=== PATIENT | male | born 1955 ===

== ENCOUNTER 2021-05-02 00:48 | Inpatient (IN) | payer MEDICARE, OTHER ==
[2021-05-02] MEDS ORDERED: Ondansetron 4 MG/2 ML SDV IVPUSH PRN (02:35)
[2021-05-02] MEDS ORDERED: Acetaminophen 325 MG Tab PO PRN (02:35)
[2021-05-02] MEDS ORDERED: Albuterol/Ipratropium 4 GM Inhalation Spray INH PRN (02:35)
[2021-05-02] MEDS ORDERED: REMDESIVIR 200 MG in Sodium Chloride 0.9% 250 ML IV ONE (02:35)
[2021-05-02] MEDS ORDERED: 50% Dextrose in Water 50 ML Syringe IVPUSH PRN (02:40)
[2021-05-02] MEDS ORDERED: Glucagon,Human Recombinant 1 MG Vial IM PRN (02:40)
[2021-05-02] MEDS: Enoxaparin 40 MG/0.4 ML Syringe SUBCUT SCH ×2 (03:01→20:18)
[2021-05-02] MEDS: Albuterol/Ipratropium 4 GM Inhalation Spray INH SCH ×6 (03:29→21:58)
[2021-05-02] MEDS: Dexamethasone 4 MG Tab PO SCH (03:46)
[2021-05-02 06:02] LABS: BLOOD UREA NITROGEN,BUN 13 mg/dL (7.0-18.0); CARBON DIOXIDE,CO2 30.1 mmol/L (21.0-32.0); CHLORIDE,CL 94 mmol/L (98-107); GLUCOSE RANDOM 157 mg/dL (74-106); SODIUM,NA 131 mmol/L (136-148)
[2021-05-02] MEDS ORDERED: Albuterol/Ipratropium 4 GM Inhalation Spray INH SCH (08:09)
--- NOTE | 2021-05-02 08:10 | PCM.HP.2 ---
H&P History of Present Illness - General Date of Service: 05/02/21 Admit Problem/Dx: Admission Diagnosis/Problem Admission Diagnosis/Problem acute hypoxic respiratory failure/COVID-19 Source of Information: Patient History Limitations: Reports: No Limitations - History of Present Illness Initial Comments - Free Text/Narative: This 65-year-old male with past medical history of hypertension, DM type II, obesity and mild alcohol use presented initially to [facility] with concerns of worsening fevers chills muscle aches and dry cough with shortness of breath. He reports that he has had these symptoms for the past 7 to 8 days and they have aggressively worsened over the last 3 days. He does report mild improvement but continues to feel significantly short breath with chest tightness. He reports he has been drinking and eating appropriately. He denies any abdominal pain other vomiting headache or neck pain. He reports mild upper respiratory symptoms such as sinus congestion and mild sore throat. He reports mild intermittent loose stools. He did report getting Covid vaccination, series of 2 vaccinations approximately 2 months ago. Patient denies any tobacco use no recreational drug use and intermittent alcohol use. In [place], no leukocytosis noted. Hemoglobin 14.6 hematocrit 43.9 platelets 262,000. Sodium 133 potassium 4.4. BUN 12 creatinine 0.9. Bilirubin 0.9 ALT 23 AST 40 alk phos 86. CRP significantly elevated at 135.5. D-dimer elevated 2.15. Covid swab positive CTA of the chest was obtained that did not show any evidence of a PE but did show extensive groundglass opacities likely secondary to COVID-19 infection. Patient was at times only requiring 0.5 L of oxygen but hospital unable to accommodate him there. Patient transferred via ambulance to [facility] for further care management for COVID-19 acute hypoxic respiratory failure. Upon arrival here patient noted to be needing 4 L of oxygen satting mid 90s. Patient otherwise stable - Related Data Allergies/Adverse Reactions: Allergies Allergy/AdvReac Type Severity Reaction Status Date / Time No Known Allergies Allergy Verified 05/02/21 01:41 Home Medications: Home Meds Furosemide [Lasix] 40 mg PO DAILY 09/24/18 [History] Losartan [Cozaar] 100 mg PO DAILY 09/24/18 [History] Potassium Chloride 10 meq PO DAILY 09/24/18 [History] Spironolactone [Aldactone] 25 mg PO DAILY 09/24/18 [History] metFORMIN [Glucophage XR] 500 mg PO DAILY 09/24/18 [History] Aspirin [Aspirin EC] 81 mg PO DAILY 05/02/21 [History] Gabapentin [Neurontin] 300 mg PO TID 05/02/21 [History] Levothyroxine Sodium [Levothyroxine] 25 mcg PO ACBREAKFAST 05/02/21 [History] Metoprolol Succinate 25 mg PO DAILY 05/02/21 [History] SUMAtriptan [Imitrex] 50 mg PO BEDTIME 05/02/21 [History] Venlafaxine [Effexor] 50 mg PO DAILY 05/02/21 [History] allopurinoL [Zyloprim] 100 mg PO DAILY 05/02/21 [History] atorvaSTATin [Lipitor] 10 mg PO BEDTIME 05/02/21 [History] Past Medical History Cardiovascular History: Reports: Heart Failure (no recent echo in file), Hypert ension Respiratory History: Reports: None. Denies: COPD, Sleep Apnea Gastrointestinal History: Reports: None Musculoskeletal History: Reports: Other (See Below) Other Musculoskeletal History: right hand fracture and had a pins in it. and has been removed Psychiatric History: Reports: Depression Endocrine/Metabolic History: Reports: Diabetes, Type II, Obesity/BMI 30+ Dermatologic History: Reports: Psoriasis - Infectious Disease History Infectious Disease History: Reports: None - Past Surgical History Cardiovascular Surgical History: Reports: None Social & Family History - Family History Family Medical History: No Pertinent Family History - Tobacco Use Tobacco Use Status *Q: Never Tobacco User Second Hand Smoke Exposure: Yes - Caffeine Use Caffeine Use: Reports: None - Alcohol Use Alcohol Use History: Yes Alcohol Use Frequency: Daily Alcohol Use Comment: reports nothing currently, but previous drank significant amount. - Recreational Drug Use Recreational Drug Use: Yes Drug Use in Last 12 Months: No Recreational Drug Type: Reports: Marijuana/Hashish Recreational Drug Use Frequency: Rarely - Living Situation & Occupation Living situation: Reports: H&P Review of Systems - Review of Systems: Review Of Systems: See Below General: Reports: Fever, Chills, Malaise, Weakness, Fatigue HEENT: Reports: Post Nasal Drip, Sinus Congestion. Denies: Headaches Pulmonary: Reports: Shortness of Breath, Pleuritic Chest Pain, Cough, Sputum Cardiovascular: Reports: Dyspnea on Exertion. Denies: Chest Pain Gastrointestinal: Reports: No Symptoms, Decreased Appetite. Denies: Abdominal Pain, Black Stool, Nausea, Vomiting Genitourinary: Reports: No Symptoms. Denies: Dysuria, Frequency Musculoskeletal: Reports: No Symptoms, Neck Pain Skin: Reports: Rash (psorasis) Psychiatric: Reports: No Symptoms Neurological: Reports: No Symptoms Hematologic/Lymphatic: Reports: No Symptoms Immunologic: Reports: No Symptoms Exam - Exam Exam: See Below - Vital Signs Vital Signs: Last Vital Signs Temp 96.5 F L 05/02/21 07:49 Pulse 67 05/02/21 07:49 Resp 20 05/02/21 07:49 BP 126/68 05/02/21 07:49 Pulse Ox 93 L 05/02/21 07:49 Weight: 140.296 kg - Exam General: Alert, Oriented, Cooperative HEENT: Conjunctiva Clear, Mucosa Moist & [place], Posterior Pharynx Clear Lungs: Decreased Breath Sounds, Crackles (fine bibasilar) Cardiovascular: Regular Rate, Regular Rhythm GI/Abdominal Exam: Normal Bowel Sounds, Soft, Non-Tender, Other (obese abdomen, large pannus) Back Exam: Normal Inspection, Full Range of Motion Extremities: Normal Inspection, Normal Range of Motion, Non-Tender, No Pedal Edema Neuro Extensive - Mental Status: Alert, Oriented x3 Neuro Extensive - Motor, Sensory, Reflexes: CN II-XII Intact, Normal Gait Psychiatric: Alert, Normal Affect, Normal Mood - Patient Data Lab Results Last 24 hrs: Laboratory Results - last 24 hr 05/02/21 05/02/21 05/02/21 Range/Units 05:15 05:15 07:35 WBC 4.64 (4.0-11.0) K/uL RBC 4.57 (4.50-5.90) M/uL Hgb 14.6 (13.0-17.0) g/dL Hct 42.9 (38.0-50.0) % MCV 93.9 (80.0-98.0) fL MCH 31.9 (27.0-32.0) pg MCHC 34.0 (31.0-37.0) g/dL RDW Std Deviation 45.8 (28.0-62.0) fl RDW Coeff of Lili 13 (11.0-15.0) % Plt Count 260 (150-400) K/uL MPV 10.50 (7.40-12.00) fL Neut % (Auto) 80.6 H (48.0-80.0) % Lymph % (Auto) 14.7 L (16.0-40.0) % [place] % (Auto) 4.5 (0.0-15.0) % Eos % (Auto) 0.0 (0.0-7.0) % Baso % (Auto) 0.2 (0.0-1.5) % Neut # (Auto) 3.7 (1.4-5.7) K/uL Lymph # (Auto) 0.7 (0.6-2.4) K/uL [place] # (Auto) 0.2 (0.0-0.8) K/uL Eos # (Auto) 0.0 (0.0-0.7) K/uL Baso # (Auto) 0.0 (0.0-0.1) K/uL Nucleated RBC % 0.0 /100WBC Nucleated RBCs # 0 K/uL Sodium 131 L (136-148) mmol/L Potassium 5.0 (3.5-5.1) mmol/L Chloride 94 L (98-107) mmol/L Carbon Dioxide 30.1 (21.0-32.0) mmol/L BUN 13 (7.0-18.0) mg/dL Creatinine 0.9 (0.8-1.3) mg/dL Est Cr Clr Drug Dosing 75.48 mL/min Estimated GFR (MDRD) > 60.0 ml/min Glucose 157 H (74-106) mg/dL POC Glucose 143 H (70-99) mg/dL Calcium 8.7 (8.5-10.1) mg/dL Phosphorus 3.4 (2.6-4.7) mg/dL Magnesium 2.5 H (1.8-2.4) mg/dL Total Bilirubin 0.8 (0.2-1.0) mg/dL Direct Bilirubin 0.30 (0.0-0.5) mg/dL AST 41 H (15-37) IU/L ALT 29 (14-63) IU/L Alkaline Phosphatase 90 (46-116) U/L Total Protein 8.0 (6.4-8.2) g/dL Albumin 2.8 L (3.4-5.0) g/dL Globulin 5.2 H (2.6-4.0) g/dL Albumin/Globulin Ratio 0.5 L (0.9-1.6) Result Diagrams: 05/02/21 05:15 05/02/21 05:15 Sepsis Event Note - Evaluation Sepsis Screening Result: No Definite Risk - Focused Exam Vital Signs: Vital Signs Temp Pulse Resp BP Pulse Ox 05/02/21 07:49 96.5 F L 67 20 126/68 93 L 05/02/21 05:05 97.1 F 71 20 126/58 L 92 L 05/02/21 01:50 95.3 F L 79 19 115/58 L 95 - Problem List (1) Acute respiratory failure with hypoxia SNOMED Code(s): 44181754, 612413225 ICD Code: J96.01 - ACUTE RESPIRATORY FAILURE WITH HYPOXIA Status: Acute Current Visit: Yes (2) COVID-19 SNOMED Code(s): 412253385 ICD Code: U07.1 - COVID-19 Status: Acute Current Visit: Yes (3) Viral pneumonia SNOMED Code(s): 20177894 ICD Code: J12.9 - VIRAL PNEUMONIA, UNSPECIFIED Status: Acute Current Visit: Yes (4) Morbid obesity SNOMED Code(s): 150561033 ICD Code: E66.01 - MORBID (SEVERE) OBESITY DUE TO EXCESS CALORIES Status: Chronic Current Visit: Yes (5) Hypertension SNOMED Code(s): 48884966 ICD Code: I10 - ESSENTIAL (PRIMARY) HYPERTENSION Status: Chronic Current Visit: Yes (6) DM type 2 (diabetes mellitus, type 2) SNOMED Code(s): 45972532 ICD Code: E11.9 - TYPE 2 DIABETES MELLITUS WITHOUT COMPLICATIONS Status: Chronic Current Visit: Yes (7) CHF (congestive heart failure) SNOMED Code(s): 75834091 ICD Code: I50.9 - HEART FAILURE, UNSPECIFIED Status: Chronic Current Visit: Yes Qualifiers: Heart failure type: unspecified Heart failure chronicity: chronic Qu alified Code(s): I50.9 - Heart failure, unspecified Problem List Initiated/Reviewed/Updated: Yes Orders Last 24hrs: Active Orders 24 hr Category Date Time Status Admission Status [Patient Status] [ADT] Routine ADT 05/02/21 07:09 Active Ambulate [RC] ASDIRECTED Care 05/02/21 02:35 Active Blood Glucose Check, Bedside [RC] TIDAC Care 05/02/21 02:35 Active Communication Order [RC] ROUTINE Care 05/02/21 08:07 Ordered Intake and Output [RC] QSHIFT Care 05/02/21 08:07 Ordered Oxygen Therapy [RC] PRN Care 05/02/21 08:08 Ordered RT Incentive Spirometry [RC] Q1HWA Care 05/02/21 08:07 Ordered RT Post Treatment Assessment [RC] Click to Edit Care 05/02/21 02:37 Active RT Pre-Treatment Assessment [RC] Click to Edit Care 05/02/21 02:37 Active Telemetry Monitoring [Cardiac Monitoring] [RC] . Care 05/02/21 07:00 Active DIRECTED Vital Signs [RC] Q4H Care 05/02/21 02:35 Active Consult to Case Management/Cistern Room Operator [CONS] Cons 05/02/21 07:00 Active Routine [employer] Diet [DIET] Diet 05/02/21 Breakfast Active Acetaminophen [TylenoL] Med 05/02/21 02:35 Active 650 mg PO Q6H PRN Albuterol/Ipratropium [Combivent Respimat] Med 05/02/21 08:09 Ordered See Dose Instructions INH Q4H Dextrose 50% in Water Med 05/02/21 02:40 Active 50 ml IVPUSH ASDIRECTED PRN Enoxaparin [Lovenox] Med 05/02/21 02:45 Active 40 mg SUBCUT BID Glucagon,Human Recombinant [GlucaGen] Med 05/02/21 02:40 Active 1 mg IM ASDIRECTED PRN Insulin Aspart [NovoLOG] Med 05/02/21 07:30 Active See Protocol SUBCUT TIDAC Ondansetron [Zofran] Med 05/02/21 02:35 Active 4 mg IVPUSH Q4H PRN Remdesivir 100 mg Med 05/03/21 12:30 Ordered Sodium Chloride 0.9% [Normal Saline] 100 ml IV Q24H dexAMETHasone Med 05/02/21 02:45 Active 6 mg PO DAILY Resuscitation Status Routine Resus Stat 05/02/21 08:09 Ordered Medication Orders Acetaminophen (Acetaminophen 325 Mg Tab) 650 mg PO Q6H PRN PRN Reason: Pain/Fever Dexamethasone (Dexamethasone 4 Mg Tab) 6 mg PO DAILY [facility] Last Admin: 05/02/21 03:46 Dose: Not Given Documented by: CAMILLA Dextrose/Water (50% Dextrose In Water 50 Ml Syringe) 50 ml IVPUSH ASDIRECTED PRN PRN Reason: Hypoglycemia Enoxaparin Sodium (Enoxaparin 40 Mg/0.4 Ml Syringe) 40 mg SUBCUT BID [facility] Last Admin: 05/02/21 03:01 Dose: 40 mg Documented by: LIANA Glucagon (Glucagon,Human Recombinant 1 Mg Vial) 1 mg IM ASDIRECTED PRN PRN Reason: Hypoglycemia Remdesivir 100 mg/ Sodium (Chloride) 100 mls @ 100 mls/hr IV Q24H [facility] Stop: 05/06/21 13:29 Insulin Aspart (Insulin Aspart 100 Units/Ml 3 Ml Pen) 0 unit SUBCUT TIDAC [facility]; Protocol Ondansetron HCl (Ondansetron 4 Mg/2 Ml Sdv) 4 mg IVPUSH Q4H PRN PRN Reason: Nausea Assessment/Plan Comment:: This 65-year-old male admitted with acute hypoxic respiratory failure, COVID-19, viral pneumonia 1. Acute hypoxic respiratory failure/Covid 19/viral pneumonia -Upon arrival given remdesivir 200 mg IV, continue remdesivir 100 mg IV daily starting tomorrow -Continue dexamethasone 6 mg p.o. daily -Oxygen therapy to keep sats greater than 92%. -Currently on 4 L nasal cannula wean as possible -Lovenox -Monitor LFTs while on remdesivir therapy -Encourage I-S use when off BiPAP -Combivent scheduled encourage coughing and deep breathing -Encourage patient to prone and/or left side-lying as much as possible -Cough medicine as needed 2. Hypertension: -Appears patient is being treated for CHF will attempt chart review and find recent echo. No ECHO noted in [facility], but one clinic not mentions hx CHF and hx alcohol abuse. -Continue spironolactone, Lasix, metoprolol and losartan -Continue ASA and statin -Monitor on telemetry 3. DM type II: -Hold Metformin -NovoLog sliding scale with meals -ADA diet VTE prophylaxis: Lovenox twice daily due to morbid obesity GI prophylaxis: Protonix CODE STATUS: Full code Dispo: 2 to 3 days pending improvement.
--- NOTE | 2021-05-02 08:11 | PCM.PN ---
- General Info Date of Service: 05/02/21 Admission Dx/Problem (Free Text): Admission Diagnosis/Problem Admission Diagnosis/Problem Pneumonia - Patient Data Vitals - Most Recent: Last Vital Signs Temp 96.5 F L 05/02/21 07:49 Pulse 67 05/02/21 07:49 Resp 20 05/02/21 07:49 BP 126/68 05/02/21 07:49 Pulse Ox 93 L 05/02/21 07:49 Weight - Most Recent: 140.296 kg Lab Results Last 24 Hours: Laboratory Results - last 24 hr 05/02/21 05/02/21 05/02/21 Range/Units 05:15 05:15 07:35 WBC 4.64 (4.0-11.0) K/uL RBC 4.57 (4.50-5.90) M/uL Hgb 14.6 (13.0-17.0) g/dL Hct 42.9 (38.0-50.0) % MCV 93.9 (80.0-98.0) fL MCH 31.9 (27.0-32.0) pg MCHC 34.0 (31.0-37.0) g/dL RDW Std Deviation 45.8 (28.0-62.0) fl RDW Coeff of Lili 13 (11.0-15.0) % Plt Count 260 (150-400) K/uL MPV 10.50 (7.40-12.00) fL Neut % (Auto) 80.6 H (48.0-80.0) % Lymph % (Auto) 14.7 L (16.0-40.0) % [place] % (Auto) 4.5 (0.0-15.0) % Eos % (Auto) 0.0 (0.0-7.0) % Baso % (Auto) 0.2 (0.0-1.5) % Neut # (Auto) 3.7 (1.4-5.7) K/uL Lymph # (Auto) 0.7 (0.6-2.4) K/uL [place] # (Auto) 0.2 (0.0-0.8) K/uL Eos # (Auto) 0.0 (0.0-0.7) K/uL Baso # (Auto) 0.0 (0.0-0.1) K/uL Nucleated RBC % 0.0 /100WBC Nucleated RBCs # 0 K/uL Sodium 131 L (136-148) mmol/L Potassium 5.0 (3.5-5.1) mmol/L Chloride 94 L (98-107) mmol/L Carbon Dioxide 30.1 (21.0-32.0) mmol/L BUN 13 (7.0-18.0) mg/dL Creatinine 0.9 (0.8-1.3) mg/dL Est Cr Clr Drug Dosing 75.48 mL/min Estimated GFR (MDRD) > 60.0 ml/min Glucose 157 H (74-106) mg/dL POC Glucose 143 H (70-99) mg/dL Calcium 8.7 (8.5-10.1) mg/dL Phosphorus 3.4 (2.6-4.7) mg/dL Magnesium 2.5 H (1.8-2.4) mg/dL Total Bilirubin 0.8 (0.2-1.0) mg/dL Direct Bilirubin 0.30 (0.0-0.5) mg/dL AST 41 H (15-37) IU/L ALT 29 (14-63) IU/L Alkaline Phosphatase 90 (46-116) U/L Total Protein 8.0 (6.4-8.2) g/dL Albumin 2.8 L (3.4-5.0) g/dL Globulin 5.2 H (2.6-4.0) g/dL Albumin/Globulin Ratio 0.5 L (0.9-1.6) Med Orders - Current: Current Medications Acetaminophen (Acetaminophen 325 Mg Tab) 650 mg PO Q6H PRN PRN Reason: Pain/Fever Albuterol/Ipratropium (Albuterol/Ipratropium 4 Gm Inhalation [place]) 0 gm INH Q4H [facility] Dexamethasone (Dexamethasone 4 Mg Tab) 6 mg PO DAILY [facility] Last Admin: 05/02/21 03:46 Dose: Not Given Documented by: Dextrose/Water (50% Dextrose In Water 50 Ml Syringe) 50 ml IVPUSH ASDIRECTED PRN PRN Reason: Hypoglycemia Enoxaparin Sodium (Enoxaparin 40 Mg/0.4 Ml Syringe) 40 mg SUBCUT BID [facility] Last Admin: 05/02/21 03:01 Dose: 40 mg Documented by: Glucagon (Glucagon,Human Recombinant 1 Mg Vial) 1 mg IM ASDIRECTED PRN PRN Reason: Hypoglycemia Remdesivir 100 mg/ Sodium (Chloride) 100 mls @ 100 mls/hr IV Q24H [facility] Stop: 05/06/21 13:29 Insulin Aspart (Insulin Aspart 100 Units/Ml 3 Ml Pen) 0 unit SUBCUT TIDAC [facility]; Protocol Ondansetron HCl (Ondansetron 4 Mg/2 Ml Sdv) 4 mg IVPUSH Q4H PRN PRN Reason: Nausea Discontinued Medications Albuterol/Ipratropium (Albuterol/Ipratropium 4 Gm Inhalation [place]) 0 gm INH Q4H PRN PRN Reason: Dyspnea Albuterol/Ipratropium (Albuterol/Ipratropium 4 Gm Inhalation [place]) 0 gm INH Q4H [facility] Last Admin: 05/02/21 06:44 Dose: 2 puff Documented by: Remdesivir 200 mg/ Sodium (Chloride) 250 mls @ 250 mls/hr IV ONETIME ONE Stop: 05/02/21 02:36 Last Admin: 05/02/21 03:01 Dose: 250 mls/hr Documented by: - Patient Data Lab Results Last 24 hrs: Laboratory Results - last 24 hr 05/02/21 05/02/21 05/02/21 Range/Units 05:15 05:15 07:35 WBC 4.64 (4.0-11.0) K/uL RBC 4.57 (4.50-5.90) M/uL Hgb 14.6 (13.0-17.0) g/dL Hct 42.9 (38.0-50.0) % MCV 93.9 (80.0-98.0) fL MCH 31.9 (27.0-32.0) pg MCHC 34.0 (31.0-37.0) g/dL RDW Std Deviation 45.8 (28.0-62.0) fl RDW Coeff of Lili 13 (11.0-15.0) % Plt Count 260 (150-400) K/uL MPV 10.50 (7.40-12.00) fL Neut % (Auto) 80.6 H (48.0-80.0) % Lymph % (Auto) 14.7 L (16.0-40.0) % Ellis % (Auto) 4.5 (0.0-15.0) % Eos % (Auto) 0.0 (0.0-7.0) % Baso % (Auto) 0.2 (0.0-1.5) % Neut # (Auto) 3.7 (1.4-5.7) K/uL Lymph # (Auto) 0.7 (0.6-2.4) K/uL [place] # (Auto) 0.2 (0.0-0.8) K/uL Eos # (Auto) 0.0 (0.0-0.7) K/uL Baso # (Auto) 0.0 (0.0-0.1) K/uL Nucleated RBC % 0.0 /100WBC Nucleated RBCs # 0 K/uL Sodium 131 L (136-148) mmol/L Potassium 5.0 (3.5-5.1) mmol/L Chloride 94 L (98-107) mmol/L Carbon Dioxide 30.1 (21.0-32.0) mmol/L BUN 13 (7.0-18.0) mg/dL Creatinine 0.9 (0.8-1.3) mg/dL Est Cr Clr Drug Dosing 75.48 mL/min Estimated GFR (MDRD) > 60.0 ml/min Glucose 157 H (74-106) mg/dL POC Glucose 143 H (70-99) mg/dL Calcium 8.7 (8.5-10.1) mg/dL Phosphorus 3.4 (2.6-4.7) mg/dL Magnesium 2.5 H (1.8-2.4) mg/dL Total Bilirubin 0.8 (0.2-1.0) mg/dL Direct Bilirubin 0.30 (0.0-0.5) mg/dL AST 41 H (15-37) IU/L ALT 29 (14-63) IU/L Alkaline Phosphatase 90 (46-116) U/L Total Protein 8.0 (6.4-8.2) g/dL Albumin 2.8 L (3.4-5.0) g/dL Globulin 5.2 H (2.6-4.0) g/dL Albumin/Globulin Ratio 0.5 L (0.9-1.6) Result Diagrams: 05/02/21 05:15 05/02/21 05:15 Sepsis Event Note - Evaluation Sepsis Screening Result: No Definite Risk - Focused Exam Vital Signs: Vital Signs Temp Pulse Resp BP Pulse Ox 05/02/21 07:49 96.5 F L 67 20 126/68 93 L 05/02/21 05:05 97.1 F 71 20 126/58 L 92 L 05/02/21 01:50 95.3 F L 79 19 115/58 L 95 - My Orders Last 24 Hours: My Active Orders 05/02/21 08:07 Communication Order [RC] ROUTINE Intake and Output [RC] QSHIFT RT Incentive Spirometry [RC] Q1HWA 05/02/21 08:08 Oxygen Therapy [RC] PRN 05/02/21 08:09 Resuscitation Status Routine 05/02/21 08:09 Albuterol/Ipratropium [Combivent Respimat] See Dose Instructions INH Q4H 05/03/21 12:30 Remdesivir 100 mg Sodium Chloride 0.9% [Normal Saline] 100 ml IV Q24H
[2021-05-02] MEDS: Insulin Aspart 100 Units/ML 3 ML Pen SUBCUT SCH ×3 (08:44→18:24)
[2021-05-02] MEDS: Gabapentin 300 MG Cap PO SCH ×2 (14:47→22:03)
[2021-05-02] MEDS ORDERED: SUMAtriptan 50 MG Tab PO PRN (15:00)
[2021-05-02] MEDS: atorvaSTATin 10 MG Tab PO SCH (20:18)
[2021-05-03] MEDS: Albuterol/Ipratropium 4 GM Inhalation Spray INH SCH ×6 (02:18→20:59)
[2021-05-03] MEDS: Levothyroxine 25 MCG Tab PO SCH (06:36)
[2021-05-03] MEDS: Gabapentin 300 MG Cap PO SCH ×3 (06:36→23:14)
[2021-05-03] MEDS: Insulin Aspart 100 Units/ML 3 ML Pen SUBCUT SCH ×3 (06:38→18:10)
[2021-05-03 07:48] LABS: BLOOD UREA NITROGEN,BUN 20 mg/dL (7.0-18.0); CARBON DIOXIDE,CO2 29.3 mmol/L (21.0-32.0); CHLORIDE,CL 97 mmol/L (98-107); GLUCOSE RANDOM 132 mg/dL (74-106); SODIUM,NA 134 mmol/L (136-148)
[2021-05-03] MEDS: Enoxaparin 40 MG/0.4 ML Syringe SUBCUT SCH ×2 (09:01→20:58)
[2021-05-03] MEDS: Aspirin 81 MG Tab.EC PO SCH (09:01)
[2021-05-03] MEDS: Spironolactone 25 MG Tab PO SCH (09:04)
[2021-05-03] MEDS: Pantoprazole 40 MG Tab.CR PO SCH (09:06)
[2021-05-03] MEDS: Dexamethasone 4 MG Tab PO SCH (09:06)
[2021-05-03] MEDS: Metoprolol Succinate 25 MG Tab.ER PO SCH (09:07)
[2021-05-03] MEDS: Allopurinol 100 MG Tab PO SCH (09:07)
[2021-05-03] MEDS: Furosemide 40 MG Tab PO SCH (09:07)
[2021-05-03] MEDS: Losartan 50 MG Tab PO SCH (09:08)
[2021-05-03] MEDS: REMDESIVIR 100 MG in Sodium Chloride 0.9% 100 ML IV SCH (13:30)
--- NOTE | 2021-05-03 14:47 | PCM.PN ---
- General Info Date of Service: 05/03/21 Admission Dx/Problem (Free Text): Admission Diagnosis/Problem Admission Diagnosis/Problem acute hypoxic respiratory failure/COVID-19 Subjective Update: Patient seen at bedside, sitting on the edge of the bed, resting comfortably no acute symptoms states that he is able to take deeper breaths now. Feels better than yesterday Functional Status: Reports: Tolerating Diet, Ambulating, Urinating - Review of Systems General: Denies: Fever, Weakness, Fatigue, Malaise Pulmonary: Reports: Shortness of Breath, Cough, Sputum. Denies: Pleuritic Chest Pain Cardiovascular: Reports: Dyspnea on Exertion. Denies: Chest Pain, Palpitations Gastrointestinal: Denies: Abdominal Pain, Constipation, Decreased Appetite, Diarrhea Genitourinary: Denies: Dysuria, Frequency, Burning, Pain Musculoskeletal: Denies: Neck Pain, Shoulder Pain, Arm Pain, Hand Pain Skin: Denies: Cyanosis, Jaundice, Mottled, Pallor - Patient Data Vitals - Most Recent: Last Vital Signs Temp 35.8 C L 05/03/21 12:00 Pulse 69 05/03/21 12:00 Resp 20 05/03/21 12:00 BP 117/56 L 05/03/21 12:00 Pulse Ox 95 05/03/21 12:00 Weight - Most Recent: 140.296 kg I&O - Last 24 Hours: Intake & Output 05/02/21 05/03/21 05/03/21 22:59 06:59 14:59 Intake Total 750 600 Balance 750 600 Lab Results Last 24 Hours: Laboratory Results - last 24 hr 05/02/21 05/03/21 05/03/21 Range/Units 17:52 06:07 06:56 WBC 7.20 (4.0-11.0) K/uL RBC 4.51 (4.50-5.90) M/uL Hgb 14.3 (13.0-17.0) g/dL Hct 42.3 (38.0-50.0) % MCV 93.8 (80.0-98.0) fL MCH 31.7 (27.0-32.0) pg MCHC 33.8 (31.0-37.0) g/dL RDW Std Deviation 45.7 (28.0-62.0) fl RDW Coeff of Lili 13 (11.0-15.0) % Plt Count 311 (150-400) K/uL MPV 9.90 (7.40-12.00) fL Neut % (Auto) 69.1 (48.0-80.0) % Lymph % (Auto) 21.0 (16.0-40.0) % [place] % (Auto) 9.7 (0.0-15.0) % Eos % (Auto) 0.1 (0.0-7.0) % Baso % (Auto) 0.1 (0.0-1.5) % Neut # (Auto) 5.0 (1.4-5.7) K/uL Lymph # (Auto) 1.5 (0.6-2.4) K/uL [place] # (Auto) 0.7 (0.0-0.8) K/uL Eos # (Auto) 0.0 (0.0-0.7) K/uL Baso # (Auto) 0.0 (0.0-0.1) K/uL Nucleated RBC % 0.0 /100WBC Nucleated RBCs # 0 K/uL Sodium (136-148) mmol/L Potassium (3.5-5.1) mmol/L Chloride (98-107) mmol/L Carbon Dioxide (21.0-32.0) mmol/L BUN (7.0-18.0) mg/dL Creatinine (0.8-1.3) mg/dL Est Cr Clr Drug Dosing mL/min Estimated GFR (MDRD) ml/min Glucose (74-106) mg/dL POC Glucose 147 H 98 (70-99) mg/dL Calcium (8.5-10.1) mg/dL Magnesium (1.8-2.4) mg/dL Total Bilirubin (0.2-1.0) mg/dL AST (15-37) IU/L ALT (14-63) IU/L Alkaline Phosphatase (46-116) U/L Total Protein (6.4-8.2) g/dL Albumin (3.4-5.0) g/dL Globulin (2.6-4.0) g/dL Albumin/Globulin Ratio (0.9-1.6) 05/03/21 05/03/21 Range/Units 06:56 11:55 WBC (4.0-11.0) K/uL RBC (4.50-5.90) M/uL Hgb (13.0-17.0) g/dL Hct (38.0-50.0) % MCV (80.0-98.0) fL MCH (27.0-32.0) pg MCHC (31.0-37.0) g/dL RDW Std Deviation (28.0-62.0) fl RDW Coeff of Lili (11.0-15.0) % Plt Count (150-400) K/uL MPV (7.40-12.00) fL Neut % (Auto) (48.0-80.0) % Lymph % (Auto) (16.0-40.0) % [place] % (Auto) (0.0-15.0) % Eos % (Auto) (0.0-7.0) % Baso % (Auto) (0.0-1.5) % Neut # (Auto) (1.4-5.7) K/uL Lymph # (Auto) (0.6-2.4) K/uL [place] # (Auto) (0.0-0.8) K/uL Eos # (Auto) (0.0-0.7) K/uL Baso # (Auto) (0.0-0.1) K/uL Nucleated RBC % /100WBC Nucleated RBCs # K/uL Sodium 134 L (136-148) mmol/L Potassium 4.0 (3.5-5.1) mmol/L Chloride 97 L (98-107) mmol/L Carbon Dioxide 29.3 (21.0-32.0) mmol/L BUN 20 H (7.0-18.0) mg/dL Creatinine 0.9 (0.8-1.3) mg/dL Est Cr Clr Drug Dosing 75.48 mL/min Estimated GFR (MDRD) > 60.0 ml/min Glucose 132 H (74-106) mg/dL POC Glucose 154 H (70-99) mg/dL Calcium 8.4 L (8.5-10.1) mg/dL Magnesium 2.6 H (1.8-2.4) mg/dL Total Bilirubin 0.7 (0.2-1.0) mg/dL AST 34 (15-37) IU/L ALT 27 (14-63) IU/L Alkaline Phosphatase 84 (46-116) U/L Total Protein 7.7 (6.4-8.2) g/dL Albumin 2.8 L (3.4-5.0) g/dL Globulin 4.9 H (2.6-4.0) g/dL Albumin/Globulin Ratio 0.6 L (0.9-1.6) Med Orders - Current: Current Medications Acetaminophen (Acetaminophen 325 Mg Tab) 650 mg PO Q6H PRN PRN Reason: Pain/Fever Albuterol/Ipratropium (Albuterol/Ipratropium 4 Gm Inhalation [place]) 0 gm INH Q4H [facility] Last Admin: 05/03/21 14:25 Dose: 2 puff Documented by: Allopurinol (Allopurinol 100 Mg Tab) 100 mg PO DAILY [facility] Last Admin: 05/03/21 09:07 Dose: 100 mg Documented by: Aspirin (Aspirin 81 Mg Tab.Ec) 81 mg PO DAILY [facility] Last Admin: 05/03/21 09:01 Dose: 81 mg Documented by: Atorvastatin Calcium (Atorvastatin 10 Mg Tab) 10 mg PO BEDTIME [facility] Last Admin: 05/02/21 20:18 Dose: 10 mg Documented by: Dexamethasone (Dexamethasone 4 Mg Tab) 6 mg PO DAILY [facility] Last Admin: 05/03/21 09:06 Dose: 6 mg Documented by: Dextrose/Water (50% Dextrose In Water 50 Ml Syringe) 50 ml IVPUSH ASDIRECTED PRN PRN Reason: Hypoglycemia Enoxaparin Sodium (Enoxaparin 40 Mg/0.4 Ml Syringe) 40 mg SUBCUT BID [facility] Last Admin: 05/03/21 09:01 Dose: 40 mg Documented by: Furosemide (Furosemide 40 Mg Tab) 40 mg PO DAILY [facility] Last Admin: 05/03/21 09:07 Dose: 40 mg Documented by: Gabapentin (Gabapentin 300 Mg Cap) 300 mg PO TID [facility] Last Admin: 05/03/21 13:30 Dose: 300 mg Documented by: Glucagon (Glucagon,Human Recombinant 1 Mg Vial) 1 mg IM ASDIRECTED PRN PRN Reason: Hypoglycemia Remdesivir 100 mg/ Sodium (Chloride) 100 mls @ 100 mls/hr IV Q24H [facility] Stop: 05/06/21 13:29 Last Admin: 05/03/21 13:30 Dose: 100 mls/hr Documented by: Insulin Aspart (Insulin Aspart 100 Units/Ml 3 Ml Pen) 0 unit SUBCUT TIDAC [facility]; Protocol Last Admin: 05/03/21 11:59 Dose: 1 unit Documented by: Levothyroxine Sodium (Levothyroxine 25 Mcg Tab) 25 mcg PO ACBREAKFAST [facility] Last Admin: 05/03/21 06:36 Dose: 25 mcg Documented by: Losartan Potassium (Losartan 50 Mg Tab) 100 mg PO DAILY [facility] Last Admin: 05/03/21 09:08 Dose: 100 mg Documented by: Metoprolol Succinate (Metoprolol Succinate 25 Mg Tab.Er) 25 mg PO DAILY [facility] Last Admin: 05/03/21 09:07 Dose: 25 mg Documented by: Ondansetron HCl (Ondansetron 4 Mg/2 Ml Sdv) 4 mg IVPUSH Q4H PRN PRN Reason: Nausea Pantoprazole Sodium (Pantoprazole 40 Mg Tab.Cr) 40 mg PO DAILY [facility] Last Admin: 05/03/21 09:06 Dose: 40 mg Documented by: Venlafaxine 50 Mg (Tablet) 1 each PO DAILY [facility] Last Admin: 05/03/21 09:08 Dose: Not Given Documented by: Spironolactone (Spironolactone 25 Mg Tab) 25 mg PO DAILY [facility] Last Admin: 05/03/21 09:04 Dose: 25 mg Documented by: Sumatriptan Succinate (Sumatriptan 50 Mg Tab) 50 mg PO .START OF MIGRAINE PRN PRN Reason: MIGRAINES Discontinued Medications Albuterol/Ipratropium (Albuterol/Ipratropium 4 Gm Inhalation [place]) 0 gm INH Q4H PRN PRN Reason: Dyspnea Albuterol/Ipratropium (Albuterol/Ipratropium 4 Gm Inhalation [place]) 0 gm INH Q 4H [facility] Last Admin: 05/02/21 06:44 Dose: 2 puff Documented by: Albuterol/Ipratropium (Albuterol/Ipratropium 4 Gm Inhalation [place]) 0 gm INH Q4H [facility] Last Admin: 05/02/21 08:47 Dose: 2 puff Documented by: Remdesivir 200 mg/ Sodium (Chloride) 250 mls @ 250 mls/hr IV ONETIME ONE Stop: 05/02/21 02:36 Last Admin: 05/02/21 03:01 Dose: 250 mls/hr Documented by: - Exam Quality Assessment: Supplemental Oxygen General: Alert Lungs: Normal Respiratory Effort, Decreased Breath Sounds, Rales, Wheezing Cardiovascular: Regular Rate, Regular Rhythm GI/Abdominal Exam: Normal Bowel Sounds, Soft, Non-Tender Extremities: Normal Inspection, Normal Range of Motion, Non-Tender - Patient Data Lab Results Last 24 hrs: Laboratory Results - last 24 hr 05/02/21 05/03/21 05/03/21 Range/Units 17:52 06:07 06:56 WBC 7.20 (4.0-11.0) K/uL RBC 4.51 (4.50-5.90) M/uL Hgb 14.3 (13.0-17.0) g/dL Hct 42.3 (38.0-50.0) % MCV 93.8 (80.0-98.0) fL MCH 31.7 (27.0-32.0) pg MCHC 33.8 (31.0-37.0) g/dL RDW Std Deviation 45.7 (28.0-62.0) fl RDW Coeff of Lili 13 (11.0-15.0) % Plt Count 311 (150-400) K/uL MPV 9.90 (7.40-12.00) fL Neut % (Auto) 69.1 (48.0-80.0) % Lymph % (Auto) 21.0 (16.0-40.0) % [place] % (Auto) 9.7 (0.0-15.0) % Eos % (Auto) 0.1 (0.0-7.0) % Baso % (Auto) 0.1 (0.0-1.5) % Neut # (Auto) 5.0 (1.4-5.7) K/uL Lymph # (Auto) 1.5 (0.6-2.4) K/uL [place] # (Auto) 0.7 (0.0-0.8) K/uL Eos # (Auto) 0.0 (0.0-0.7) K/uL Baso # (Auto) 0.0 (0.0-0.1) K/uL Nucleated RBC % 0.0 /100WBC Nucleated RBCs # 0 K/uL Sodium (136-148) mmol/L Potassium (3.5-5.1) mmol/L Chloride (98-107) mmol/L Carbon Dioxide (21.0-32.0) mmol/L BUN (7.0-18.0) mg/dL Creatinine (0.8-1.3) mg/dL Est Cr Clr Drug Dosing mL/min Estimated GFR (MDRD) ml/min Glucose (74-106) mg/dL POC Glucose 147 H 98 (70-99) mg/dL Calcium (8.5-10.1) mg/dL Magnesium (1.8-2.4) mg/dL Total Bilirubin (0.2-1.0) mg/dL AST (15-37) IU/L ALT (14-63) IU/L Alkaline Phosphatase (46-116) U/L Total Protein (6.4-8.2) g/dL Albumin (3.4-5.0) g/dL Globulin (2.6-4.0) g/dL Albumin/Globulin Ratio (0.9-1.6) 05/03/21 05/03/21 Range/Units 06:56 11:55 WBC (4.0-11.0) K/uL RBC (4.50-5.90) M/uL Hgb (13.0-17.0) g/dL Hct (38.0-50.0) % MCV (80.0-98.0) fL MCH (27.0-32.0) pg MCHC (31.0-37.0) g/dL RDW Std Deviation (28.0-62.0) fl RDW Coeff of Lili (11.0-15.0) % Plt Count (150-400) K/uL MPV (7.40-12.00) fL Neut % (Auto) (48.0-80.0) % Lymph % (Auto) (16.0-40.0) % [place] % (Auto) (0.0-15.0) % Eos % (Auto) (0.0-7.0) % Baso % (Auto) (0.0-1.5) % Neut # (Auto) (1.4-5.7) K/uL Lymph # (Auto) (0.6-2.4) K/uL [place] # (Auto) (0.0-0.8) K/uL Eos # (Auto) (0.0-0.7) K/uL Baso # (Auto) (0.0-0.1) K/uL Nucleated RBC % /100WBC Nucleated RBCs # K/uL Sodium 134 L (136-148) mmol/L Potassium 4.0 (3.5-5.1) mmol/L Chloride 97 L (98-107) mmol/L Carbon Dioxide 29.3 (21.0-32.0) mmol/L BUN 20 H (7.0-18.0) mg/dL Creatinine 0.9 (0.8-1.3) mg/dL Est Cr Clr Drug Dosing 75.48 mL/min Estimated GFR (MDRD) > 60.0 ml/min Glucose 132 H (74-106) mg/dL POC Glucose 154 H (70-99) mg/dL Calcium 8.4 L (8.5-10.1) mg/dL Magnesium 2.6 H (1.8-2.4) mg/dL Total Bilirubin 0.7 (0.2-1.0) mg/dL AST 34 (15-37) IU/L ALT 27 (14-63) IU/L Alkaline Phosphatase 84 (46-116) U/L Total Protein 7.7 (6.4-8.2) g/dL Albumin 2.8 L (3.4-5.0) g/dL Globulin 4.9 H (2.6-4.0) g/dL Albumin/Globulin Ratio 0.6 L (0.9-1.6) Result Diagrams: 05/03/21 06:56 05/03/21 06:56 Sepsis Event Note - Evaluation Sepsis Screening Result: No Definite Risk - Focused Exam Vital Signs: Vital Signs Temp Pulse Pulse Resp BP BP Pulse Ox 05/03/21 12:00 35.8 C L 69 20 117/56 L 95 05/03/21 09:08 109/59 L 05/03/21 09:07 70 109/59 L 05/03/21 08:59 35.9 C L 70 18 109/59 L 95 05/03/21 08:08 05/03/21 05:29 20 92 L 05/03/21 05:28 20 77 L 05/03/21 04:00 36.1 C 75 20 117/59 L 93 L Pulse Ox 05/03/21 12:00 05/03/21 09:08 05/03/21 09:07 05/03/21 08:59 05/03/21 08:08 95 05/03/21 05:29 05/03/21 05:28 05/03/21 04:00 - Problem List & Annotations (1) Acute respiratory failure with hypoxia SNOMED Code(s): 68872746, 601896189 Code(s): J96.01 - ACUTE RESPIRATORY FAILURE WITH HYPOXIA Status: Acute Current Visit: Yes (2) COVID-19 SNOMED Code(s): 224028727 Code(s): U07.1 - COVID-19 Status: Acute Current Visit: Yes (3) DM type 2 (diabetes mellitus, type 2) SNOMED Code(s): 79150030 Code(s): E11.9 - TYPE 2 DIABETES MELLITUS WITHOUT COMPLICATIONS Status: Chronic Current Visit: Yes (4) Hypertension SNOMED Code(s): 82810120 Code(s): I10 - ESSENTIAL (PRIMARY) HYPERTENSION Status: Chronic Current Visit: Yes (5) Morbid obesity SNOMED Code(s): 619894035 Code(s): E66.01 - MORBID (SEVERE) OBESITY DUE TO EXCESS CALORIES Status: Chronic Current Visit: Yes - Problem List Review Problem List Initiated/Reviewed/Updated: Yes - Plan Plan:: This 65-year-old male admitted with acute hypoxic respiratory failure, COVID-19, viral pneumonia 1. Acute hypoxic respiratory failure/Covid 19/viral pneumonia -Upon arrival given remdesivir 200 mg IV, continue remdesivir 100 mg IV daily -Continue dexamethasone 6 mg p.o. daily -Oxygen therapy to keep sats greater than 92%. -Currently on 3 L nasal cannula wean as possible -Lovenox -Monitor LFTs while on remdesivir therapy -Encourage I-S use when off BiPAP -Combivent scheduled encourage coughing and deep breathing -Encourage patient to prone and/or left side-lying as much as possible -Cough medicine as needed 2. Hypertension: -Appears patient is being treated for CHF, No ECHO noted in [facility], but one clinic not mentions hx CHF and hx alcohol abuse. -Continue spironolactone, Lasix, metoprolol and losartan -Continue ASA and statin -Monitor on telemetry 3. DM type II: -Hold Metformin -NovoLog sliding scale with meals -ADA diet VTE prophylaxis: Lovenox twice daily due to morbid obesity GI prophylaxis: Protonix CODE STATUS: Full code Dispo: 2 to 3 days pending improvement.
[2021-05-03] MEDS: guaiFENesin/Dextromethorphan 100-10 MG/5 ML Soln 10 ML Cup PO SCH ×2 (16:29→20:45)
[2021-05-03] MEDS: atorvaSTATin 10 MG Tab PO SCH (20:48)
[2021-05-03] MEDS: Amitriptyline 25 MG Tab PO SCH (23:14)
[2021-05-04] MEDS: guaiFENesin/Dextromethorphan 100-10 MG/5 ML Soln 10 ML Cup PO SCH ×6 (01:12→21:37)
[2021-05-04] MEDS: Albuterol/Ipratropium 4 GM Inhalation Spray INH SCH ×6 (01:13→21:36)
[2021-05-04] MEDS: Gabapentin 300 MG Cap PO SCH ×3 (05:27→21:35)
[2021-05-04] MEDS: Levothyroxine 25 MCG Tab PO SCH (06:55)
[2021-05-04] MEDS: Insulin Aspart 100 Units/ML 3 ML Pen SUBCUT SCH ×3 (07:30→17:32)
[2021-05-04 08:10] LABS: BLOOD UREA NITROGEN,BUN 22 mg/dL (7.0-18.0); CARBON DIOXIDE,CO2 27.9 mmol/L (21.0-32.0); CHLORIDE,CL 99 mmol/L (98-107); GLUCOSE RANDOM 131 mg/dL (74-106); SODIUM,NA 136 mmol/L (136-148)
[2021-05-04] MEDS: Furosemide 40 MG Tab PO SCH (08:21)
[2021-05-04] MEDS: Pantoprazole 40 MG Tab.CR PO SCH (08:22)
[2021-05-04] MEDS: Metoprolol Succinate 25 MG Tab.ER PO SCH (08:22)
[2021-05-04] MEDS: Spironolactone 25 MG Tab PO SCH (08:22)
[2021-05-04] MEDS: Allopurinol 100 MG Tab PO SCH (08:22)
[2021-05-04] MEDS: Aspirin 81 MG Tab.EC PO SCH (08:23)
[2021-05-04] MEDS: Losartan 50 MG Tab PO SCH (08:23)
[2021-05-04] MEDS: Dexamethasone 4 MG Tab PO SCH (08:24)
[2021-05-04] MEDS: Enoxaparin 40 MG/0.4 ML Syringe SUBCUT SCH ×2 (08:26→21:36)
[2021-05-04] MEDS: REMDESIVIR 100 MG in Sodium Chloride 0.9% 100 ML IV SCH (12:32)
--- NOTE | 2021-05-04 13:59 | PCM.PN ---
- General Info Date of Service: 05/04/21 - Review of Systems Systems Review Comment:: shortness of breath has improved, reports cough - Patient Data Vitals - Most Recent: Last Vital Signs Temp 35.9 C L 05/04/21 12:02 Pulse 69 05/04/21 12:02 Resp 18 05/04/21 12:02 BP 114/56 L 05/04/21 12:02 Pulse Ox 91 L 05/04/21 12:02 Weight - Most Recent: 140.296 kg I&O - Last 24 Hours: Intake & Output 05/03/21 05/04/21 05/04/21 22:59 06:59 14:59 Intake Total 1020 800 Balance 1020 800 Lab Results Last 24 Hours: Laboratory Results - last 24 hr 05/03/21 05/04/21 05/04/21 Range/Units 18:07 06:53 07:13 WBC 10.37 (4.0-11.0) K/uL RBC 4.48 L (4.50-5.90) M/uL Hgb 14.1 (13.0-17.0) g/dL Hct 42.2 (38.0-50.0) % MCV 94.2 (80.0-98.0) fL MCH 31.5 (27.0-32.0) pg MCHC 33.4 (31.0-37.0) g/dL RDW Std Deviation 46.1 (28.0-62.0) fl RDW Coeff of Lili 13 (11.0-15.0) % Plt Count 373 (150-400) K/uL MPV 10.10 (7.40-12.00) fL Neut % (Auto) 76.1 (48.0-80.0) % Lymph % (Auto) 16.0 (16.0-40.0) % [place] % (Auto) 7.8 (0.0-15.0) % Eos % (Auto) 0.0 (0.0-7.0) % Baso % (Auto) 0.1 (0.0-1.5) % Neut # (Auto) 7.9 H (1.4-5.7) K/uL Lymph # (Auto) 1.7 (0.6-2.4) K/uL [place] # (Auto) 0.8 (0.0-0.8) K/uL Eos # (Auto) 0.0 (0.0-0.7) K/uL Baso # (Auto) 0.0 (0.0-0.1) K/uL Nucleated RBC % 0.0 /100WBC Nucleated RBCs # 0 K/uL Sodium (136-148) mmol/L Potassium (3.5-5.1) mmol/L Chloride (98-107) mmol/L Carbon Dioxide (21.0-32.0) mmol/L BUN (7.0-18.0) mg/dL Creatinine (0.8-1.3) mg/dL Est Cr Clr Drug Dosing mL/min Estimated GFR (MDRD) ml/min Glucose (74-106) mg/dL POC Glucose 150 H 139 H (70-99) mg/dL Calcium (8.5-10.1) mg/dL Phosphorus (2.6-4.7) mg/dL Magnesium (1.8-2.4) mg/dL Total Bilirubin (0.2-1.0) mg/dL AST (15-37) IU/L ALT (14-63) IU/L Alkaline Phosphatase (46-116) U/L Total Protein (6.4-8.2) g/dL Albumin (3.4-5.0) g/dL Globulin (2.6-4.0) g/dL Albumin/Globulin Ratio (0.9-1.6) 05/04/21 05/04/21 Range/Units 07:13 11:59 WBC (4.0-11.0) K/uL RBC (4.50-5.90) M/uL Hgb (13.0-17.0) g/dL Hct (38.0-50.0) % MCV (80.0-98.0) fL MCH (27.0-32.0) pg MCHC (31.0-37.0) g/dL RDW Std Deviation (28.0-62.0) fl RDW Coeff of Lili (11.0-15.0) % Plt Count (150-400) K/uL MPV (7.40-12.00) fL Neut % (Auto) (48.0-80.0) % Lymph % (Auto) (16.0-40.0) % [place] % (Auto) (0.0-15.0) % Eos % (Auto) (0.0-7.0) % Baso % (Auto) (0.0-1.5) % Neut # (Auto) (1.4-5.7) K/uL Lymph # (Auto) (0.6-2.4) K/uL [place] # (Auto) (0.0-0.8) K/uL Eos # (Auto) (0.0-0.7) K/uL Baso # (Auto) (0.0-0.1) K/uL Nucleated RBC % /100WBC Nucleated RBCs # K/uL Sodium 136 (136-148) mmol/L Potassium 4.0 (3.5-5.1) mmol/L Chloride 99 (98-107) mmol/L Carbon Dioxide 27.9 (21.0-32.0) mmol/L BUN 22 H (7.0-18.0) mg/dL Creatinine 1.0 (0.8-1.3) mg/dL Est Cr Clr Drug Dosing 67.94 mL/min Estimated GFR (MDRD) > 60.0 ml/min Glucose 131 H (74-106) mg/dL POC Glucose 154 H (70-99) mg/dL Calcium 8.9 (8.5-10.1) mg/dL Phosphorus 3.5 (2.6-4.7) mg/dL Magnesium 2.9 H (1.8-2.4) mg/dL Total Bilirubin 0.7 (0.2-1.0) mg/dL AST 35 (15-37) IU/L ALT 30 (14-63) IU/L Alkaline Phosphatase 86 (46-116) U/L Total Protein 7.9 (6.4-8.2) g/dL Albumin 2.9 L (3.4-5.0) g/dL Globulin 5.0 H (2.6-4.0) g/dL Albumin/Globulin Ratio 0.6 L (0.9-1.6) Med Orders - Current: Current Medications Acetaminophen (Acetaminophen 325 Mg Tab) 650 mg PO Q6H PRN PRN Reason: Pain/Fever Albuterol/Ipratropium (Albuterol/Ipratropium 4 Gm Inhalation [place]) 0 gm INH Q4H [facility] Last Admin: 05/04/21 09:23 Dose: 2 puff Documented by: Allopurinol (Allopurinol 100 Mg Tab) 100 mg PO DAILY [facility] Last Admin: 05/04/21 08:22 Dose: 100 mg Documented by: Amitriptyline HCl (Amitriptyline 25 Mg Tab) 50 mg PO BEDTIME [facility] Last Admin: 05/03/21 23:14 Dose: 50 mg Documented by: Aspirin (Aspirin 81 Mg Tab.Ec) 81 mg PO DAILY [facility] Last Admin: 05/04/21 08:23 Dose: 81 mg Documented by: Atorvastatin Calcium (Atorvastatin 10 Mg Tab) 10 mg PO BEDTIME [facility] Last Admin: 05/03/21 20:48 Dose: 10 mg Documented by: Dexamethasone (Dexamethasone 4 Mg Tab) 6 mg PO DAILY [facility] Last Admin: 05/04/21 08:24 Dose: 6 mg Documented by: Dextrose/Water (50% Dextrose In Water 50 Ml Syringe) 50 ml IVPUSH ASDIRECTED PRN PRN Reason: Hypoglycemia Enoxaparin Sodium (Enoxaparin 40 Mg/0.4 Ml Syringe) 40 mg SUBCUT BID [facility] Last Admin: 05/04/21 08:26 Dose: 40 mg Documented by: Furosemide (Furosemide 40 Mg Tab) 40 mg PO DAILY [facility] Last Admin: 05/04/21 08:21 Dose: 40 mg Documented by: Gabapentin (Gabapentin 300 Mg Cap) 300 mg PO TID [facility] Last Admin: 05/04/21 05:27 Dose: 300 mg Documented by: Glucagon (Glucagon,Human Recombinant 1 Mg Vial) 1 mg IM ASDIRECTED PRN PRN Reason: Hypoglycemia Guaifenesin/Dextromethorphan (Guaifenesin/Dextromethorphan 100-10 Mg/5 Ml Soln 10 Ml Cup) 10 ml PO Q4H [facility] Last Admin: 05/04/21 12:31 Dose: 10 ml Documented by: Remdesivir 100 mg/ Sodium (Chloride) 100 mls @ 100 mls/hr IV Q24H [facility] Stop: 05/06/21 13:29 Last Admin: 05/04/21 12:32 Dose: 100 mls/hr Documented by: Insulin Aspart (Insulin Aspart 100 Units/Ml 3 Ml Pen) 0 unit SUBCUT TIDAC [facility]; Protocol Last Admin: 05/04/21 12:05 Dose: 1 unit Documented by: Levothyroxine Sodium (Levothyroxine 25 Mcg Tab) 25 mcg PO ACBREAKFAST [facility] Last Admin: 05/04/21 06:55 Dose: 25 mcg Documented by: Losartan Potassium (Losartan 50 Mg Tab) 100 mg PO DAILY [facility] Last Admin: 05/04/21 08:23 Dose: 100 mg Documented by: Metoprolol Succinate (Metoprolol Succinate 25 Mg Tab.Er) 25 mg PO DAILY [facility] Last Admin: 05/04/21 08:22 Dose: 25 mg Documented by: Ondansetron HCl (Ondansetron 4 Mg/2 Ml Sdv) 4 mg IVPUSH Q4H PRN PRN Reason: Nausea Pantoprazole Sodium (Pantoprazole 40 Mg Tab.Cr) 40 mg PO DAILY [facility] Last Admin: 05/04/21 08:22 Dose: 40 mg Documented by: Venlafaxine 50 Mg (Tablet) 1 each PO DAILY [facility] Last Admin: 05/04/21 08:48 Dose: Not Given Documented by: Spironolactone (Spironolactone 25 Mg Tab) 25 mg PO DAILY [facility] Last Admin: 05/04/21 08:22 Dose: 25 mg Documented by: Sumatriptan Succinate (Sumatriptan 50 Mg Tab) 50 mg PO .START OF MIGRAINE PRN PRN Reason: MIGRAINES Discontinued Medications Albuterol/Ipratropium (Albuterol/Ipratropium 4 Gm Inhalation [place]) 0 gm INH Q4H PRN PRN Reason: Dyspnea Albuterol/Ipratropium (Albuterol/Ipratropium 4 Gm Inhalation [place]) 0 gm INH Q4H [facility] Last Admin: 05/02/21 06:44 Dose: 2 puff Documented by: Albuterol/Ipratropium (Albuterol/Ipratropium 4 Gm Inhalation [place]) 0 gm INH Q4H [facility] Last Admin: 05/02/21 08:47 Dose: 2 puff Documented by: Remdesivir 200 mg/ Sodium (Chloride) 250 mls @ 250 mls/hr IV ONETIME ONE Stop: 05/02/21 02:36 Last Admin: 05/02/21 03:01 Dose: 250 mls/hr Documented by: - Exam General: Alert, Oriented Neck: Supple Lungs: Normal Respiratory Effort, Rhonchi Cardiovascular: Regular Rate, Regular Rhythm GI/Abdominal Exam: Soft, Non-Tender, No Distention Extremities: Non-Tender, No Pedal Edema Skin: Warm, Dry, Intact Neurological: No New Focal Deficit - Patient Data Lab Results Last 24 hrs: Laboratory Results - last 24 hr 05/03/21 05/04/21 05/04/21 Range/Units 18:07 06:53 07:13 WBC 10.37 (4.0-11.0) K/uL RBC 4.48 L (4.50-5.90) M/uL Hgb 14.1 (13.0-17.0) g/dL Hct 42.2 (38.0-50.0) % MCV 94.2 (80.0-98.0) fL MCH 31.5 (27.0-32.0) pg MCHC 33.4 (31.0-37.0) g/dL RDW Std Deviation 46.1 (28.0-62.0) fl RDW Coeff of Lili 13 (11.0-15.0) % Plt Count 373 (150-400) K/uL MPV 10.10 (7.40-12.00) fL Neut % (Auto) 76.1 (48.0-80.0) % Lymph % (Auto) 16.0 (16.0-40.0) % [place] % (Auto) 7.8 (0.0-15.0) % Eos % (Auto) 0.0 (0.0-7.0) % Baso % (Auto) 0.1 (0.0-1.5) % Neut # (Auto) 7.9 H (1.4-5.7) K/uL Lymph # (Auto) 1.7 (0.6-2.4) K/uL [place] # (Auto) 0.8 (0.0-0.8) K/uL Eos # (Auto) 0.0 (0.0-0.7) K/uL Baso # (Auto) 0.0 (0.0-0.1) K/uL Nucleated RBC % 0.0 /100WBC Nucleated RBCs # 0 K/uL Sodium (136-148) mmol/L Potassium (3.5-5.1) mmol/L Chloride (98-107) mmol/L Carbon Dioxide (21.0-32.0) mmol/L BUN (7.0-18.0) mg/dL Creatinine (0.8-1.3) mg/dL Est Cr Clr Drug Dosing mL/min Estimated GFR (MDRD) ml/min Glucose (74-106) mg/dL POC Glucose 150 H 139 H (70-99) mg/dL Calcium (8.5-10.1) mg/dL Phosphorus (2.6-4.7) mg/dL Magnesium (1.8-2.4) mg/dL Total Bilirubin (0.2-1.0) mg/dL AST (15-37) IU/L ALT (14-63) IU/L Alkaline Phosphatase (46-116) U/L Total Protein (6.4-8.2) g/dL Albumin (3.4-5.0) g/dL Globulin (2.6-4.0) g/dL Albumin/Globulin Ratio (0.9-1.6) 05/04/21 05/04/21 Range/Units 07:13 11:59 WBC (4.0-11.0) K/uL RBC (4.50-5.90) M/uL Hgb (13.0-17.0) g/dL Hct (38.0-50.0) % MCV (80.0-98.0) fL MCH (27.0-32.0) pg MCHC (31.0-37.0) g/dL RDW Std Deviation (28.0-62.0) fl RDW Coeff of Lili (11.0-15.0) % Plt Count (150-400) K/uL MPV (7.40-12.00) fL Neut % (Auto) (48.0-80.0) % Lymph % (Auto) (16.0-40.0) % [place] % (Auto) (0.0-15.0) % Eos % (Auto) (0.0-7.0) % Baso % (Auto) (0.0-1.5) % Neut # (Auto) (1.4-5.7) K/uL Lymph # (Auto) (0.6-2.4) K/uL [place] # (Auto) (0.0-0.8) K/uL Eos # (Auto) (0.0-0.7) K/uL Baso # (Auto) (0.0-0.1) K/uL Nucleated RBC % /100WBC Nucleated RBCs # K/uL Sodium 136 (136-148) mmol/L Potassium 4.0 (3.5-5.1) mmol/L Chloride 99 (98-107) mmol/L Carbon Dioxide 27.9 (21.0-32.0) mmol/L BUN 22 H (7.0-18.0) mg/dL Creatinine 1.0 (0.8-1.3) mg/dL Est Cr Clr Drug Dosing 67.94 mL/min Estimated GFR (MDRD) > 60.0 ml/min Glucose 131 H (74-106) mg/dL POC Glucose 154 H (70-99) mg/dL Calcium 8.9 (8.5-10.1) mg/dL Phosphorus 3.5 (2.6-4.7) mg/dL Magnesium 2.9 H (1.8-2.4) mg/dL Total Bilirubin 0.7 (0.2-1.0) mg/dL AST 35 (15-37) IU/L ALT 30 (14-63) IU/L Alkaline Phosphatase 86 (46-116) U/L Total Protein 7.9 (6.4-8.2) g/dL Albumin 2.9 L (3.4-5.0) g/dL Globulin 5.0 H (2.6-4.0) g/dL Albumin/Globulin Ratio 0.6 L (0.9-1.6) Result Diagrams: 05/04/21 07:13 05/04/21 07:13 Sepsis Event Note - Evaluation Sepsis Screening Result: No Definite Risk - Focused Exam Vital Signs: Vital Signs Temp Pulse Pulse Resp BP BP Pulse Ox 05/04/21 12:02 35.9 C L 69 18 114/56 L 91 L 05/04/21 10:00 05/04/21 08:23 118/60 05/04/21 08:22 68 118/60 05/04/21 08:20 36.6 C 68 20 118/60 94 L 05/04/21 05:29 92 L 05/04/21 05:28 35.9 C L 62 18 112/63 89 L Pulse Ox 05/04/21 12:02 05/04/21 10:00 94 L 05/04/21 08:23 05/04/21 08:22 05/04/21 08:20 05/04/21 05:29 05/04/21 05:28 - Problem List Review Problem List Initiated/Reviewed/Updated: Yes - My Orders Last 24 Hours: My Active Orders 05/03/21 22:55 Amitriptyline [Elavil] 50 mg PO BEDTIME 05/05/21 05:11 CBC WITH AUTO DIFF [HEME] AM COMPREHENSIVE METABOLIC PN,CMP [CHEM] AM 05/06/21 05:11 CBC WITH AUTO DIFF [HEME] AM COMPREHENSIVE METABOLIC PN,CMP [CHEM] AM 05/07/21 05:11 CBC WITH AUTO DIFF [HEME] AM COMPREHENSIVE METABOLIC PN,CMP [CHEM] AM 05/08/21 05:11 CBC WITH AUTO DIFF [HEME] AM COMPREHENSIVE METABOLIC PN,CMP [CHEM] AM - Plan Plan:: This 65-year-old male admitted with acute hypoxic respiratory failure, COVID-19, viral pneumonia 1. Acute hypoxic respiratory failure/Covid 19/viral pneumonia -continue remdesivir 100 mg IV daily -Continue dexamethasone 6 mg p.o. daily -Oxygen therapy to keep sats greater than 92%. -Currently on 4 L nasal cannula wean as possible -Lovenox -Monitor LFTs while on remdesivir therapy -Combivent scheduled encourage coughing and deep breathing -Encourage patient to prone and/or left side-lying as much as possible -Cough medicine as needed 2. Hypertension: -Appears patient is being treated for CHF, No ECHO noted in [facility], but one clinic not mentions hx CHF and hx alcohol abuse. -Continue spironolactone, Lasix, metoprolol and losartan -Continue ASA and statin -Monitor on telemetry 3. DM type II: -Hold Metformin -NovoLog sliding scale with meals -ADA diet VTE prophylaxis: Lovenox twice daily due to morbid obesity GI prophylaxis: Protonix CODE STATUS: Full code Dispo: 2 to 3 days pending improvement.
[2021-05-04] MEDS: Amitriptyline 25 MG Tab PO SCH (21:36)
[2021-05-04] MEDS: atorvaSTATin 10 MG Tab PO SCH (21:36)
[2021-05-05] MEDS: guaiFENesin/Dextromethorphan 100-10 MG/5 ML Soln 10 ML Cup PO SCH ×6 (00:59→20:49)
[2021-05-05] MEDS: Albuterol/Ipratropium 4 GM Inhalation Spray INH SCH ×6 (00:59→22:04)
[2021-05-05] MEDS: Gabapentin 300 MG Cap PO SCH ×4 (05:24→22:09)
[2021-05-05] MEDS: Levothyroxine 25 MCG Tab PO SCH (06:50)
[2021-05-05] MEDS: Insulin Aspart 100 Units/ML 3 ML Pen SUBCUT SCH ×3 (07:47→19:33)
--- NOTE | 2021-05-05 07:52 | PCM.PN ---
- General Info Date of Service: 05/05/21 - Review of Systems Systems Review Comment:: feeling better, strength improving - Patient Data Vitals - Most Recent: Last Vital Signs Temp 36.2 C 05/05/21 04:06 Pulse 68 05/05/21 04:06 Resp 17 05/05/21 04:06 BP 109/58 L 05/05/21 04:06 Pulse Ox 92 L 05/05/21 04:06 Weight - Most Recent: 140.296 kg I&O - Last 24 Hours: Intake & Output 05/04/21 05/05/21 05/05/21 22:59 06:59 14:59 Intake Total 750 850 Output Total 400 Balance 750 450 Lab Results Last 24 Hours: Laboratory Results - last 24 hr 05/04/21 05/04/21 05/04/21 Range/Units 07:13 11:59 17:29 WBC (4.0-11.0) K/uL RBC (4.50-5.90) M/uL Hgb (13.0-17.0) g/dL Hct (38.0-50.0) % MCV (80.0-98.0) fL MCH (27.0-32.0) pg MCHC (31.0-37.0) g/dL RDW Std Deviation (28.0-62.0) fl RDW Coeff of Lili (11.0-15.0) % Plt Count (150-400) K/uL MPV (7.40-12.00) fL Neut % (Auto) (48.0-80.0) % Lymph % (Auto) (16.0-40.0) % [place] % (Auto) (0.0-15.0) % Eos % (Auto) (0.0-7.0) % Baso % (Auto) (0.0-1.5) % Neut # (Auto) (1.4-5.7) K/uL Lymph # (Auto) (0.6-2.4) K/uL [place] # (Auto) (0.0-0.8) K/uL Eos # (Auto) (0.0-0.7) K/uL Baso # (Auto) (0.0-0.1) K/uL Nucleated RBC % /100WBC Nucleated RBCs # K/uL Sodium 136 (136-148) mmol/L Potassium 4.0 (3.5-5.1) mmol/L Chloride 99 (98-107) mmol/L Carbon Dioxide 27.9 (21.0-32.0) mmol/L BUN 22 H (7.0-18.0) mg/dL Creatinine 1.0 (0.8-1.3) mg/dL Est Cr Clr Drug Dosing 67.94 mL/min Estimated GFR (MDRD) > 60.0 ml/min Glucose 131 H (74-106) mg/dL POC Glucose 154 H 161 H (70-99) mg/dL Calcium 8.9 (8.5-10.1) mg/dL Phosphorus 3.5 (2.6-4.7) mg/dL Magnesium 2.9 H (1.8-2.4) mg/dL Total Bilirubin 0.7 (0.2-1.0) mg/dL AST 35 (15-37) IU/L ALT 30 (14-63) IU/L Alkaline Phosphatase 86 (46-116) U/L Total Protein 7.9 (6.4-8.2) g/dL Albumin 2.9 L (3.4-5.0) g/dL Globulin 5.0 H (2.6-4.0) g/dL Albumin/Globulin Ratio 0.6 L (0.9-1.6) 05/05/21 Range/Units 06:42 WBC 12.17 H (4.0-11.0) K/uL RBC 4.26 L (4.50-5.90) M/uL Hgb 13.8 (13.0-17.0) g/dL Hct 40.5 (38.0-50.0) % MCV 95.1 (80.0-98.0) fL MCH 32.4 H (27.0-32.0) pg MCHC 34.1 (31.0-37.0) g/dL RDW Std Deviation 46.8 (28.0-62.0) fl RDW Coeff of Lili 14 (11.0-15.0) % Plt Count 368 (150-400) K/uL MPV 10.30 (7.40-12.00) fL Neut % (Auto) 76.0 (48.0-80.0) % Lymph % (Auto) 15.6 L (16.0-40.0) % [place] % (Auto) 8.2 (0.0-15.0) % Eos % (Auto) 0.1 (0.0-7.0) % Baso % (Auto) 0.1 (0.0-1.5) % Neut # (Auto) 9.3 H (1.4-5.7) K/uL Lymph # (Auto) 1.9 (0.6-2.4) K/uL [place] # (Auto) 1.0 H (0.0-0.8) K/uL Eos # (Auto) 0.0 (0.0-0.7) K/uL Baso # (Auto) 0.0 (0.0-0.1) K/uL Nucleated RBC % 0.2 /100WBC Nucleated RBCs # 0 K/uL Sodium (136-148) mmol/L Potassium (3.5-5.1) mmol/L Chloride (98-107) mmol/L Carbon Dioxide (21.0-32.0) mmol/L BUN (7.0-18.0) mg/dL Creatinine (0.8-1.3) mg/dL Est Cr Clr Drug Dosing mL/min Estimated GFR (MDRD) ml/min Glucose (74-106) mg/dL POC Glucose (70-99) mg/dL Calcium (8.5-10.1) mg/dL Phosphorus (2.6-4.7) mg/dL Magnesium (1.8-2.4) mg/dL Total Bilirubin (0.2-1.0) mg/dL AST (15-37) IU/L ALT (14-63) IU/L Alkaline Phosphatase (46-116) U/L Total Protein (6.4-8.2) g/dL Albumin (3.4-5.0) g/dL Globulin (2.6-4.0) g/dL Albumin/Globulin Ratio (0.9-1.6) Med Orders - Current: Current Medications Acetaminophen (Acetaminophen 325 Mg Tab) 650 mg PO Q6H PRN PRN Reason: Pain/Fever Albuterol/Ipratropium (Albuterol/Ipratropium 4 Gm Inhalation [place]) 0 gm INH Q4H [facility] Last Admin: 05/05/21 05:24 Dose: 2 puff Documented by: Allopurinol (Allopurinol 100 Mg Tab) 100 mg PO DAILY [facility] Last Admin: 05/04/21 08:22 Dose: 100 mg Documented by: Amitriptyline HCl (Amitriptyline 25 Mg Tab) 50 mg PO BEDTIME [facility] Last Admin: 05/04/21 21:36 Dose: 50 mg Documented by: Aspirin (Aspirin 81 Mg Tab.Ec) 81 mg PO DAILY [facility] Last Admin: 05/04/21 08:23 Dose: 81 mg Documented by: Atorvastatin Calcium (Atorvastatin 10 Mg Tab) 10 mg PO BEDTIME [facility] Last Admin: 05/04/21 21:36 Dose: 10 mg Documented by: Dexamethasone (Dexamethasone 4 Mg Tab) 6 mg PO DAILY [facility] Last Admin: 05/04/21 08:24 Dose: 6 mg Documented by: Dextrose/Water (50% Dextrose In Water 50 Ml Syringe) 50 ml IVPUSH ASDIRECTED PRN PRN Reason: Hypoglycemia Enoxaparin Sodium (Enoxaparin 40 Mg/0.4 Ml Syringe) 40 mg SUBCUT BID [facility] Last Admin: 05/04/21 21:36 Dose: Not Given Documented by: Furosemide (Furosemide 40 Mg Tab) 40 mg PO DAILY [facility] Last Admin: 05/04/21 08:21 Dose: 40 mg Documented by: Gabapentin (Gabapentin 300 Mg Cap) 300 mg PO TID [facility] Last Admin: 05/05/21 05:24 Dose: 300 mg Documented by: Glucagon (Glucagon,Human Recombinant 1 Mg Vial) 1 mg IM ASDIRECTED PRN PRN Reason: Hypoglycemia Guaifenesin/Dextromethorphan (Guaifenesin/Dextromethorphan 100-10 Mg/5 Ml Soln 10 Ml Cup) 10 ml PO Q4H [facility] Last Admin: 05/05/21 05:24 Dose: 10 ml Documented by: Remdesivir 100 mg/ Sodium (Chloride) 100 mls @ 100 mls/hr IV Q24H [facility] Stop: 05/06/21 13:29 Last Admin: 05/04/21 12:32 Dose: 100 mls/hr Documented by: Insulin Aspart (Insulin Aspart 100 Units/Ml 3 Ml Pen) 0 unit SUBCUT TIDAC [facility]; Protocol Last Admin: 05/04/21 17:32 Dose: 1 unit Documented by: Levothyroxine Sodium (Levothyroxine 25 Mcg Tab) 25 mcg PO ACBREAKFAST [facility] Last Admin: 05/05/21 06:50 Dose: 25 mcg Documented by: Losartan Potassium (Losartan 50 Mg Tab) 100 mg PO DAILY [facility] Last Admin: 05/04/21 08:23 Dose: 100 mg Documented by: Metoprolol Succinate (Metoprolol Succinate 25 Mg Tab.Er) 25 mg PO DAILY [facility] Last Admin: 05/04/21 08:22 Dose: 25 mg Documented by: Ondansetron HCl (Ondansetron 4 Mg/2 Ml Sdv) 4 mg IVPUSH Q4H PRN PRN Reason: Nausea Pantoprazole Sodium (Pantoprazole 40 Mg Tab.Cr) 40 mg PO DAILY [facility] Last Admin: 05/04/21 08:22 Dose: 40 mg Documented by: Venlafaxine 50 Mg (Tablet) 1 each PO DAILY [facility] Last Admin: 05/04/21 08:48 Dose: Not Given Documented by: Spironolactone (Spironolactone 25 Mg Tab) 25 mg PO DAILY [facility] Last Admin: 05/04/21 08:22 Dose: 25 mg Documented by: Sumatriptan Succinate (Sumatriptan 50 Mg Tab) 50 mg PO .START OF MIGRAINE PRN PRN Reason: MIGRAINES Discontinued Medications Albuterol/Ipratropium (Albuterol/Ipratropium 4 Gm Inhalation [place]) 0 gm INH Q4H PRN PRN Reason: Dyspnea Albuterol/Ipratropium (Albuterol/Ipratropium 4 Gm Inhalation [place]) 0 gm INH Q4H [facility] Last Admin: 05/02/21 06:44 Dose: 2 puff Documented by: Albuterol/Ipratropium (Albuterol/Ipratropium 4 Gm Inhalation [place]) 0 gm INH Q4H [facility] Last Admin: 05/02/21 08:47 Dose: 2 puff Documented by: Remdesivir 200 mg/ Sodium (Chloride) 250 mls @ 250 mls/hr IV ONETIME ONE Stop: 05/02/21 02:36 Last Admin: 05/02/21 03:01 Dose: 250 mls/hr Documented by: - Exam General: Alert, Oriented Lungs: Clear to Auscultation, Normal Respiratory Effort GI/Abdominal Exam: Soft, Non-Tender, No Distention Extremities: Non-Tender, No Pedal Edema Skin: Warm, Dry, Intact Neurological: No New Focal Deficit - Patient Data Lab Results Last 24 hrs: Laboratory Results - last 24 hr 05/04/21 05/04/21 05/04/21 Range/Units 07:13 11:59 17:29 WBC (4.0-11.0) K/uL RBC (4.50-5.90) M/uL Hgb (13.0-17.0) g/dL Hct (38.0-50.0) % MCV (80.0-98.0) fL MCH (27.0-32.0) pg MCHC (31.0-37.0) g/dL RDW Std Deviation (28.0-62.0) fl RDW Coeff of Lili (11.0-15.0) % Plt Count (150-400) K/uL MPV (7.40-12.00) fL Neut % (Auto) (48.0-80.0) % Lymph % (Auto) (16.0-40.0) % [place] % (Auto) (0.0-15.0) % Eos % (Auto) (0.0-7.0) % Baso % (Auto) (0.0-1.5) % Neut # (Auto) (1.4-5.7) K/uL Lymph # (Auto) (0.6-2.4) K/uL [place] # (Auto) (0.0-0.8) K/uL Eos # (Auto) (0.0-0.7) K/uL Baso # (Auto) (0.0-0.1) K/uL Nucleated RBC % /100WBC Nucleated RBCs # K/uL Sodium 136 (136-148) mmol/L Potassium 4.0 (3.5-5.1) mmol/L Chloride 99 (98-107) mmol/L Carbon Dioxide 27.9 (21.0-32.0) mmol/L BUN 22 H (7.0-18.0) mg/dL Creatinine 1.0 (0.8-1.3) mg/dL Est Cr Clr Drug Dosing 67.94 mL/min Estimated GFR (MDRD) > 60.0 ml/min Glucose 131 H (74-106) mg/dL POC Glucose 154 H 161 H (70-99) mg/dL Calcium 8.9 (8.5-10.1) mg/dL Phosphorus 3.5 (2.6-4.7) mg/dL Magnesium 2.9 H (1.8-2.4) mg/dL Total Bilirubin 0.7 (0.2-1.0) mg/dL AST 35 (15-37) IU/L ALT 30 (14-63) IU/L Alkaline Phosphatase 86 (46-116) U/L Total Protein 7.9 (6.4-8.2) g/dL Albumin 2.9 L (3.4-5.0) g/dL Globulin 5.0 H (2.6-4.0) g/dL Albumin/Globulin Ratio 0.6 L (0.9-1.6) 05/05/21 Range/Units 06:42 WBC 12.17 H (4.0-11.0) K/uL RBC 4.26 L (4.50-5.90) M/uL Hgb 13.8 (13.0-17.0) g/dL Hct 40.5 (38.0-50.0) % MCV 95.1 (80.0-98.0) fL MCH 32.4 H (27.0-32.0) pg MCHC 34.1 (31.0-37.0) g/dL RDW Std Deviation 46.8 (28.0-62.0) fl RDW Coeff of Lili 14 (11.0-15.0) % Plt Count 368 (150-400) K/uL MPV 10.30 (7.40-12.00) fL Neut % (Auto) 76.0 (48.0-80.0) % Lymph % (Auto) 15.6 L (16.0-40.0) % [place] % (Auto) 8.2 (0.0-15.0) % Eos % (Auto) 0.1 (0.0-7.0) % Baso % (Auto) 0.1 (0.0-1.5) % Neut # (Auto) 9.3 H (1.4-5.7) K/uL Lymph # (Auto) 1.9 (0.6-2.4) K/uL [place] # (Auto) 1.0 H (0.0-0.8) K/uL Eos # (Auto) 0.0 (0.0-0.7) K/uL Baso # (Auto) 0.0 (0.0-0.1) K/uL Nucleated RBC % 0.2 /100WBC Nucleated RBCs # 0 K/uL Sodium (136-148) mmol/L Potassium (3.5-5.1) mmol/L Chloride (98-107) mmol/L Carbon Dioxide (21.0-32.0) mmol/L BUN (7.0-18.0) mg/dL Creatinine (0.8-1.3) mg/dL Est Cr Clr Drug Dosing mL/min Estimated GFR (MDRD) ml/min Glucose (74-106) mg/dL POC Glucose (70-99) mg/dL Calcium (8.5-10.1) mg/dL Phosphorus (2.6-4.7) mg/dL Magnesium (1.8-2.4) mg/dL Total Bilirubin (0.2-1.0) mg/dL AST (15-37) IU/L ALT (14-63) IU/L Alkaline Phosphatase (46-116) U/L Total Protein (6.4-8.2) g/dL Albumin (3.4-5.0) g/dL Globulin (2.6-4.0) g/dL Albumin/Globulin Ratio (0.9-1.6) Result Diagrams: 05/05/21 06:42 05/04/21 07:13 Sepsis Event Note - Evaluation Sepsis Screening Result: No Definite Risk - Focused Exam Vital Signs: Vital Signs Temp Pulse Resp BP Pulse Ox 05/05/21 04:06 36.2 C 68 17 109/58 L 92 L 05/05/21 00:00 36.2 C 69 17 109/64 93 L 05/04/21 20:00 36.2 C 66 17 105/58 L 92 L - Problem List Review Problem List Initiated/Reviewed/Updated: Yes - My Orders Last 24 Hours: My Active Orders 05/05/21 06:42 COMPREHENSIVE METABOLIC PN,CMP [CHEM] AM 05/06/21 05:11 CBC WITH AUTO DIFF [HEME] AM COMPREHENSIVE METABOLIC PN,CMP [CHEM] AM 05/07/21 05:11 CBC WITH AUTO DIFF [HEME] AM COMPREHENSIVE METABOLIC PN,CMP [CHEM] AM 05/08/21 05:11 CBC WITH AUTO DIFF [HEME] AM COMPREHENSIVE METABOLIC PN,CMP [CHEM] AM - Plan Plan:: This 65-year-old male admitted with acute hypoxic respiratory failure, COVID-19, viral pneumonia 1. Acute hypoxic respiratory failure/Covid 19/viral pneumonia -finished remdesivir -Continue dexamethasone 6 mg p.o. daily -Oxygen therapy to keep sats greater than 92%. -Currently on 4 L nasal cannula wean as possible -Lovenox -Combivent scheduled encourage coughing and deep breathing -Encourage patient to prone and/or left side-lying as much as possible -Cough medicine as needed 2. Hypertension: -Appears patient is being treated for CHF, No ECHO noted in [facility], but one clinic not mentions hx CHF and hx alcohol abuse. -Continue spironolactone, Lasix, metoprolol and losartan -Continue ASA and statin -Monitor on telemetry 3. DM type II: -Hold Metformin -NovoLog sliding scale with meals -ADA diet VTE prophylaxis: Lovenox twice daily due to morbid obesity GI prophylaxis: Protonix CODE STATUS: Full code Dispo: 2 to 3 days pending improvement. may need to be discharged on home oxygen.
[2021-05-05 08:07] LABS: BLOOD UREA NITROGEN,BUN 23 mg/dL (7.0-18.0); CARBON DIOXIDE,CO2 31.2 mmol/L (21.0-32.0); CHLORIDE,CL 100 mmol/L (98-107); GLUCOSE RANDOM 122 mg/dL (74-106); POTASSIUM,K 3.8 mmol/L (3.5-5.1); SODIUM,NA 136 mmol/L (136-148)
[2021-05-05] MEDS: Dexamethasone 4 MG Tab PO SCH (08:58)
[2021-05-05] MEDS: Aspirin 81 MG Tab.EC PO SCH (08:59)
[2021-05-05] MEDS: Losartan 50 MG Tab PO SCH (09:01)
[2021-05-05] MEDS: Metoprolol Succinate 25 MG Tab.ER PO SCH (09:01)
[2021-05-05] MEDS: Furosemide 40 MG Tab PO SCH (09:01)
[2021-05-05] MEDS: Spironolactone 25 MG Tab PO SCH (09:02)
[2021-05-05] MEDS: Pantoprazole 40 MG Tab.CR PO SCH (09:02)
[2021-05-05] MEDS: Allopurinol 100 MG Tab PO SCH (09:02)
[2021-05-05] MEDS: Enoxaparin 40 MG/0.4 ML Syringe SUBCUT SCH ×2 (11:12→22:10)
[2021-05-05] MEDS: REMDESIVIR 100 MG in Sodium Chloride 0.9% 100 ML IV SCH (11:46)
[2021-05-05] MEDS: atorvaSTATin 10 MG Tab PO SCH (20:49)
[2021-05-05] MEDS: Amitriptyline 25 MG Tab PO SCH (20:49)
[2021-05-06] MEDS: guaiFENesin/Dextromethorphan 100-10 MG/5 ML Soln 10 ML Cup PO SCH ×3 (00:04→08:33)
[2021-05-06] MEDS: Albuterol/Ipratropium 4 GM Inhalation Spray INH SCH ×3 (02:09→10:14)
[2021-05-06 06:36] LABS: BLOOD UREA NITROGEN,BUN 21 mg/dL (7.0-18.0); CHLORIDE,CL 99 mmol/L (98-107); GLUCOSE RANDOM 115 mg/dL (74-106); POTASSIUM,K 3.9 mmol/L (3.5-5.1); SODIUM,NA 136 mmol/L (136-148)
[2021-05-06] MEDS: Levothyroxine 25 MCG Tab PO SCH (06:56)
[2021-05-06] MEDS: Gabapentin 300 MG Cap PO SCH (06:57)
[2021-05-06] MEDS: Insulin Aspart 100 Units/ML 3 ML Pen SUBCUT SCH (06:58)
[2021-05-06] MEDS: Losartan 50 MG Tab PO SCH (08:33)
[2021-05-06] MEDS: Allopurinol 100 MG Tab PO SCH (08:34)
[2021-05-06] MEDS: Pantoprazole 40 MG Tab.CR PO SCH (08:34)
[2021-05-06] MEDS: Furosemide 40 MG Tab PO SCH (08:34)
[2021-05-06] MEDS: Spironolactone 25 MG Tab PO SCH (08:36)
[2021-05-06] MEDS: Metoprolol Succinate 25 MG Tab.ER PO SCH (08:38)
[2021-05-06] MEDS: Enoxaparin 40 MG/0.4 ML Syringe SUBCUT SCH (08:50)
--- NOTE | 2021-05-06 11:42 | PCM.DCSUM1 ---
Discharge Summary - Discharge Data Discharge Date: 05/06/21 Discharge Disposition: Home, Self-Care 01 Condition: Good - Referral to Home Health Primary Care Physician: PCP None - Patient Summary/Data Consults: Consultations 05/02/21 07:00 Consult to Case Management/Tile Classifier [CONS] Routine Hospital Course: This 65-year-old male with past medical history of hypertension, DM type II, and obesity who presented with concerns of worsening fevers chills muscle aches and dry cough with shortness of breath. He did report getting Covid vaccination, series of 2 vaccinations approximately 2 months ago. Patient denies any tobacco use no recreational drug use and intermittent alcohol use. In [place], no leukocytosis noted. Hemoglobin 14.6 hematocrit 43.9 platelets 262,000. Sodium 133 potassium 4.4. BUN 12 creatinine 0.9. Bilirubin 0.9 ALT 23 AST 40 alk phos 86. CRP significantly elevated at 135.5. D-dimer elevated 2.15. Covid swab positive CTA of the chest was obtained that did not show any evidence of a PE but did show extensive groundglass opacities likely secondary to COVID-19 infection. Patient was at times only requiring 0.5 L of oxygen but hospital unable to accommodate him there. Patient transferred via ambulance to [facility] for further care management for COVID-19 acute hypoxic respiratory failure. Upon arrival here patient noted to be needing 4 L of oxygen satting mid 90s. He was treated with remdesivir, dexamethasone and supplemtnal oxygen. He finish five days of remdesivir. Today he is feeling well after talking about the benifits of further monitoring or going home the patient preferred to go home. Patient desates to 87% on room air today. For past three days he has been needing 3 liters of oxygen via [place]. Patient was discharged home with supplemental oxygen. He is to follow up with his primary care provider in two weeks. - Patient Instructions Other/Special Instructions: Report symptoms of chest pain, fever, or worsening shortness of breath. Take dexamethasone 6mg daily for four more days. Follow up with your primary care provider within two weeks. - Discharge Plan Prescriptions/Med Rec: dexAMETHasone [Dexamethasone] 6 mg PO DAILY #12 tab Home Medications: Home Meds Furosemide [Lasix] 40 mg PO DAILY 09/24/18 [History] Losartan [Cozaar] 100 mg PO DAILY 09/24/18 [History] Potassium Chloride 10 meq PO DAILY 09/24/18 [History] Spironolactone [Aldactone] 25 mg PO DAILY 09/24/18 [History] metFORMIN [Glucophage XR] 500 mg PO DAILY 09/24/18 [History] Aspirin [Aspirin EC] 81 mg PO DAILY 05/02/21 [History] Gabapentin [Neurontin] 300 mg PO TID 05/02/21 [History] Levothyroxine Sodium [Levothyroxine] 25 mcg PO ACBREAKFAST 05/02/21 [History] Metoprolol Succinate 25 mg PO DAILY 05/02/21 [History] SUMAtriptan [Imitrex] 50 mg PO BEDTIME 05/02/21 [History] Venlafaxine [Effexor] 50 mg PO DAILY 05/02/21 [History] allopurinoL [Zyloprim] 100 mg PO DAILY 05/02/21 [History] atorvaSTATin [Lipitor] 10 mg PO BEDTIME 05/02/21 [History] Amitriptyline HCl 50 mg PO BEDTIME 05/03/21 [History] dexAMETHasone [Dexamethasone] 6 mg PO DAILY #12 tab 05/06/21 [Rx] Oxygen Flow Rate (L/min): 3 Maintain SPO2% less than: 95 Maintain SpO2% greater than: 89 - Discharge Summary/Plan Comment DC Time >30 min.: No Total # of Minutes for Discharge Time: 20 - Patient Data Vitals - Most Recent: Last Vital Signs Temp 36.4 C 05/06/21 04:26 Pulse 60 05/06/21 08:38 Resp 21 H 05/06/21 04:26 BP 124/60 05/06/21 08:38 Pulse Ox 91 L 05/06/21 04:26 Weight - Most Recent: 140.296 kg I&O - Last 24 hours: Intake & Output 05/05/21 05/06/21 05/06/21 22:59 06:59 14:59 Intake Total 1040 700 Balance 1040 700 Lab Results - Last 24 hrs: Laboratory Results - last 24 hr 05/06/21 05/06/21 05/06/21 Range/Units 05:28 05:28 06:54 WBC 15.84 H (4.0-11.0) K/uL RBC 4.50 (4.50-5.90) M/uL Hgb 14.4 (13.0-17.0) g/dL Hct 42.7 (38.0-50.0) % MCV 94.9 (80.0-98.0) fL MCH 32.0 (27.0-32.0) pg MCHC 33.7 (31.0-37.0) g/dL RDW Std Deviation 46.5 (28.0-62.0) fl RDW Coeff of Lili 14 (11.0-15.0) % Plt Count 420 H (150-400) K/uL MPV 10.30 (7.40-12.00) fL Neut % (Auto) 76.8 (48.0-80.0) % Lymph % (Auto) 15.4 L (16.0-40.0) % Tate % (Auto) 7.6 (0.0-15.0) % Eos % (Auto) 0.1 (0.0-7.0) % Baso % (Auto) 0.1 (0.0-1.5) % Neut # (Auto) 12.2 H (1.4-5.7) K/uL Lymph # (Auto) 2.4 (0.6-2.4) K/uL Tate # (Auto) 1.2 H (0.0-0.8) K/uL Eos # (Auto) 0.0 (0.0-0.7) K/uL Baso # (Auto) 0.0 (0.0-0.1) K/uL Nucleated RBC % 0.0 /100WBC Nucleated RBCs # 0 K/uL Sodium 136 (136-148) mmol/L Potassium 3.9 (3.5-5.1) mmol/L Chloride 99 (98-107) mmol/L Carbon Dioxide 31.0 (21.0-32.0) mmol/L BUN 21 H (7.0-18.0) mg/dL Creatinine 1.0 (0.8-1.3) mg/dL Est Cr Clr Drug Dosing 67.94 mL/min Estimated GFR (MDRD) > 60.0 ml/min Glucose 115 H (74-106) mg/dL POC Glucose 110 H (70-99) mg/dL Calcium 8.5 (8.5-10.1) mg/dL Total Bilirubin 0.7 (0.2-1.0) mg/dL AST 31 (15-37) IU/L ALT 29 (14-63) IU/L Alkaline Phosphatase 85 (46-116) U/L Total Protein 7.5 (6.4-8.2) g/dL Albumin 2.8 L (3.4-5.0) g/dL Globulin 4.7 H (2.6-4.0) g/dL Albumin/Globulin Ratio 0.6 L (0.9-1.6) Med Orders - Current: Current Medications Acetaminophen (Acetaminophen 325 Mg Tab) 650 mg PO Q6H PRN PRN Reason: Pain/Fever Albuterol/Ipratropium (Albuterol/Ipratropium 4 Gm Inhalation [place]) 0 gm INH Q4H [facility] Last Admin: 05/06/21 10:14 Dose: 2 puff Documented by: Allopurinol (Allopurinol 100 Mg Tab) 100 mg PO DAILY [facility] Last Admin: 05/06/21 08:34 Dose: 100 mg Documented by: Amitriptyline HCl (Amitriptyline 25 Mg Tab) 50 mg PO BEDTIME [facility] Last Admin: 05/05/21 20:49 Dose: 50 mg Documented by: Aspirin (Aspirin 81 Mg Tab.Ec) 81 mg PO DAILY [facility] Last Admin: 05/05/21 08:59 Dose: 81 mg Documented by: Atorvastatin Calcium (Atorvastatin 10 Mg Tab) 10 mg PO BEDTIME [facility] Last Admin: 05/05/21 20:49 Dose: 10 mg Documented by: Dexamethasone (Dexamethasone 4 Mg Tab) 6 mg PO DAILY [facility] Last Admin: 05/05/21 08:58 Dose: 6 mg Documented by: Dextrose/Water (50% Dextrose In Water 50 Ml Syringe) 50 ml IVPUSH ASDIRECTED PRN PRN Reason: Hypoglycemia Enoxaparin Sodium (Enoxaparin 40 Mg/0.4 Ml Syringe) 40 mg SUBCUT BID [facility] Last Admin: 05/06/21 08:50 Dose: 40 mg Documented by: Furosemide (Furosemide 40 Mg Tab) 40 mg PO DAILY [facility] Last Admin: 05/06/21 08:34 Dose: 40 mg Documented by: Gabapentin (Gabapentin 300 Mg Cap) 300 mg PO TID [facility] Last Admin: 05/06/21 06:57 Dose: 300 mg Documented by: Glucagon (Glucagon,Human Recombinant 1 Mg Vial) 1 mg IM ASDIRECTED PRN PRN Reason: Hypoglycemia Guaifenesin/Dextromethorphan (Guaifenesin/Dextromethorphan 100-10 Mg/5 Ml Soln 10 Ml Cup) 10 ml PO Q4H [facility] Last Admin: 05/06/21 08:33 Dose: 10 ml Documented by: Remdesivir 100 mg/ Sodium (Chloride) 100 mls @ 100 mls/hr IV Q24H [facility] Stop: 05/06/21 13:29 Last Admin: 05/05/21 11:46 Dose: 100 mls/hr Documented by: Insulin Aspart (Insulin Aspart 100 Units/Ml 3 Ml Pen) 0 unit SUBCUT TIDAC [facility]; Protocol Last Admin: 05/06/21 06:58 Dose: Not Given Documented by: Levothyroxine Sodium (Levothyroxine 25 Mcg Tab) 25 mcg PO ACBREAKFAST [facility] Last Admin: 05/06/21 06:56 Dose: 25 mcg Documented by: Losartan Potassium (Losartan 50 Mg Tab) 100 mg PO DAILY [facility] Last Admin: 05/06/21 08:33 Dose: 100 mg Documented by: Metoprolol Succinate (Metoprolol Succinate 25 Mg Tab.Er) 25 mg PO DAILY [facility] Last Admin: 05/06/21 08:38 Dose: 25 mg Documented by: Ondansetron HCl (Ondansetron 4 Mg/2 Ml Sdv) 4 mg IVPUSH Q4H PRN PRN Reason: Nausea Pantoprazole Sodium (Pantoprazole 40 Mg Tab.Cr) 40 mg PO DAILY [facility] Last Admin: 05/06/21 08:34 Dose: 40 mg Documented by: Venlafaxine 50 Mg (Tablet) 1 each PO DAILY [facility] Last Admin: 05/05/21 09:07 Dose: Not Given Documented by: Spironolactone (Spironolactone 25 Mg Tab) 25 mg PO DAILY [facility] Last Admin: 05/06/21 08:36 Dose: 25 mg Documented by: Sumatriptan Succinate (Sumatriptan 50 Mg Tab) 50 mg PO .START OF MIGRAINE PRN PRN Reason: MIGRAINES Discontinued Medications Albuterol/Ipratropium (Albuterol/Ipratropium 4 Gm Inhalation [place]) 0 gm INH Q4H PRN PRN Reason: Dyspnea Albuterol/Ipratropium (Albuterol/Ipratropium 4 Gm Inhalation [place]) 0 gm INH Q4H [facility] Last Admin: 05/02/21 06:44 Dose: 2 puff Documented by: Albuterol/Ipratropium (Albuterol/Ipratropium 4 Gm Inhalation [place]) 0 gm INH Q4H [facility] Last Admin: 05/02/21 08:47 Dose: 2 puff Documented by: Remdesivir 200 mg/ Sodium (Chloride) 250 mls @ 250 mls/hr IV ONETIME ONE Stop: 05/02/21 02:36 Last Admin: 05/02/21 03:01 Dose: 250 mls/hr Documented by:
[2021-05-06] MEDS: Dexamethasone 4 MG Tab PO SCH (16:20)
[2021-05-06] MEDS: Aspirin 81 MG Tab.EC PO SCH (16:20)
== END 2021-05-06 15:00 | disposition home or self-care (01) | DRG 177 ==
LOC: MW.MS 01:13 → OBSVTOIN 09:25 → MW.MS 09:25
PROVIDERS: ADMIT Student in an Organized Health Care Education/Training Program; ATTEND Student in an Organized Health Care Education/Training Program
PROC: XW033E5 Introduction of Remdesivir Anti-infective into Peripheral Vein, Percutaneous Approach, New Technology Group 5 (ICD-10-PCS; principal; 2021-05-02)
PROC: 3E0DX3Z Introduction of Anti-inflammatory into Mouth and Pharynx, External Approach (ICD-10-PCS; 2021-05-02)
DX: U07.1 COVID-19 (principal); J96.01 Acute respiratory failure with hypoxia; J12.82 Pneumonia due to coronavirus disease 2019; Z68.42 Body mass index [BMI] 45.0-49.9, adult; E11.9 Type 2 diabetes mellitus without complications; E66.01 Morbid (severe) obesity due to excess calories; I11.0 Hypertensive heart disease with heart failure; J44.0 Chronic obstructive pulmonary disease with (acute) lower respiratory infection; G47.30 Sleep apnea, unspecified; I50.9 Heart failure, unspecified; Z79.82 Long term (current) use of aspirin; Z79.899 Other long term (current) drug therapy; Z79.890 Hormone replacement therapy; Z79.84 Long term (current) use of oral hypoglycemic drugs
CPT/HCPCS: 36415; 80053; 82248; 82947; 83735; 84100; 85025; A9270; J1650; J1815; J7050; 94640; J8540